=== PATIENT | male | born 1970 | race Caucasian/White ===

== ENCOUNTER 2020-04-21 17:25 | Emergency (ER) | payer OTHER ==
[~2020-04-21] VITALS: Ht 182.9 cm; Wt 99.8 kg
[~2020-04-21 17:25] MED LIST: ARNUITY ELLIP100 MCG IH; ASPIR 8181 MG ORAL; ATORVASTATIN CA80 MG ORAL; BACLOFEN10 MG ORAL; BRIMONIDINE 0.110 ML OP; CELEBREX100 MG ORAL; DEBROX15 M1 BOTH EARS; FERROUS SULFAT325 MG ORAL; FISH OIL 1,0001 EAC1 ORAL; FLAX SEED OIL1000 MG PO; FLONASE ALLERG9.9 ML NS; FLOVENT DISKUS50 MCG IH; FLOVENT2 PUFF1 INH; FUROSEMIDE40 MG ORAL; GARLIC1000 MG PO; HYDROXYZINE PA100 MG ORAL; KEPPRA500 M4 ORAL; MECLAZINE; METHOCARBAMOL500 MG ORAL; MIDODRINE; NEO-POLYCIN HC3.5 GM OP; NITROGLYCERIN2.5 MG PO; NORCO 5-325 TA1 EACH ORAL; PREDNISOLO15 MG/5 M1 ORAL; PRILOSEC OTC20 MG ORAL; RANEXA500 MG ORAL; SYNJARDY 5-5001 EACH PO; VENTOLIN HFA18 GM INH; [UNRECOGNIZED DRUG - OTHER]; [UNRECOGNIZED DRUG - OTHER]; [UNRECOGNIZED DRUG - OTHER]; [UNRECOGNIZED DRUG - OTHER]; trazadone; tricor
[2020-04-21 18:00] VITALS: BP 154/108
--- NOTE | 2020-04-21 18:00 | NUR ---
ED Nurse Note: Patient from home and walked in due to CP that radiates to his left arm and left leg x 2 days. ASA 362mg and 2 sprays of NTG given by EMS. Patient noted to be SOB at rest. Sats 97-100% in room air. Patient is AAO x4, follows commands with mild labored breathing.
--- NOTE | 2020-04-21 18:19 | NUR ---
ED Nurse Note: Collected blood specimen then sent.
--- NOTE | 2020-04-21 18:20 | NUR ---
ED Nurse Note: electrical tech/project manager at the bed side for CXR.
[2020-04-21] MEDS: Nitroglycerin Subl 0.4mg tab SL ONE ×2 (18:25→18:31)
[2020-04-21] MEDS ORDERED: Morphine Sulfate 4mg/ml Inj (IV USE ONLY) IVP ONE ×2 (18:30→20:00)
--- NOTE | 2020-04-21 18:33 | NUR ---
ED Nurse Note: Patient states that he took 3 doses of NTG at home and Dr Wallace was notified. NTG bottle seal was already torn off by Primary RN and wasting witnessed by Bill LONGO.
[2020-04-21 18:37] LABS: BASOPHILS % (AUTO) 1.1 % (0.0-2.0); EOSINOPHILS % (AUTO) 1.1 % (0.0-3.0); HEMATOCRIT 49.7 % (42.0-52.0); HEMOGLOBIN 16.7 G/DL (14.2-18.0); LYMPHOCYTES % (AUTO) 29.4 % (20.0-45.0); MEAN CORPUSCULAR VOLUME 89 FL (80-99); MONOCYTES % (AUTO) 8.1 % (1.0-10.0); NEUTROPHILS % (AUTO) 60.2 % (45.0-75.0); PLATELET COUNT 335 K/UL (150-450); RED BLOOD COUNT 5.58 M/UL (4.70-6.10); RED CELL DISTRIBUTION WIDTH 15.3 % (11.6-14.8); WHITE BLOOD COUNT 11.6 K/UL (4.8-10.8)
[2020-04-21 18:42] LABS: CALCIUM 9.2 MG/DL (8.5-10.1); CREATININE 1.6 MG/DL (0.55-1.30); POTASSIUM 4.2 MMOL/L (3.5-5.1)
--- NOTE | 2020-04-21 18:42 | Diagnostic Imaging Report ---
Indication: Chest pain Technique: One view of the chest Comparison: none Findings: The left hemidiaphragm is somewhat obscured, infiltrate, atelectasis, or pleural fluid at the left lung base possible. The lungs and right pleural space are otherwise clear. There is overlying cardiac loop monitor. The heart size is upper limits normal. Impression: Obscured left hemidiaphragm, could indicate atelectasis, pleural fluid, and/or consolidation at the left lung base No acute process otherwise
[2020-04-21 18:47] LABS: ALBUMIN 3.8 G/DL (3.4-5.0); ALBUMIN/GLOBULIN RATIO 0.8 (1.0-2.7); BILIRUBIN,TOTAL 0.4 MG/DL (0.2-1.0)
[2020-04-21] MEDS ORDERED: Omnipaque 350 100ml vial INJ PRN ×2 (19:15→21:00)
--- NOTE | 2020-04-21 19:35 | Diagnostic Imaging Report ---
EXAM: CT Head Without Intravenous Contrast CLINICAL HISTORY: SYNCOPE TECHNIQUE: Axial computed tomography images of the head/brain without intravenous contrast. CTDI is 53.4 mGy and DLP is 1045.5 mGy-cm. One or more of the following dose reduction techniques were used: automated exposure control, adjustment of the mA and/or kV according to patient size, use of iterative reconstruction technique. COMPARISON: No previous studies FINDINGS: Brain: No abnormal extra-axial collection. No hemorrhage. Ventricles: There is prominence of the ventricular system, cortical sulci, basilar cisterns, compatible with age related changes. Bones/joints: Unremarkable. No acute fracture. Soft tissues: Unremarkable. Sinuses: Visualized sinuses are unremarkable. Mastoid air cells: Mastoid air cells are well pneumatized. Other findings: Postsurgical changes. Axial and coronal images were provided. IMPRESSION: 1. Age-related changes. 2. No acute intracranial pathology is detected. 3. If there is concern for etiology such as early acute lacunar infarcts, magnetic resonance imaging of the brain with diffusion-weighted sequences should be performed.
--- NOTE | 2020-04-21 19:45 | Diagnostic Imaging Report ---
EXAM: CT Chest Without Intravenous Contrast CLINICAL HISTORY: Chest pain. TECHNIQUE: Axial computed tomography images of the chest without intravenous contrast. CTDI is 12.4 mGy and DLP is 460.1 mGy-cm. One or more of the following dose reduction techniques were used: automated exposure control, adjustment of the mA and/or kV according to patient size, use of iterative reconstruction technique. COMPARISON: Plain film evaluation of the chest performed earlier today. FINDINGS: Lungs: Evaluation of the right pulmonary parenchyma reveals scarring and subsegmental atelectasis posteriorly. Similar findings left lung. Airways patent. Pleural space: Unremarkable. No pneumothorax. No significant effusion. Heart: Unremarkable. No cardiomegaly. No significant pericardial effusion. Mediastinum: Minimally patulous air-filled distal esophagus. Thyroid: Thyroid gland is unremarkable. Bones/joints: Moderate degenerative disc disease of the thoracic spine. Sternum is unremarkable. No acute fracture. No dislocation. Soft tissues: Unremarkable. Vasculature: Minimal atherosclerotic disease of the thoracic aorta. No thoracic aortic aneurysm. Lymph nodes: Unremarkable. No enlarged lymph nodes. Other findings: Minimal ASCVD. IMPRESSION: No significant pulmonary parenchymal abnormalities.
[2020-04-21 19:53] VITALS: BP 148/90
--- NOTE | 2020-04-21 20:15 | NUR ---
[facility] will come to take patient @[id number] trip ticket #[phone]
--- NOTE | 2020-04-21 20:43 | Emergency Room Report ---
History of Present Illness General Chief Complaint: Chest Pain Source: EMS Present Illness HPI 50-year-old male presents for chest pain. Brought in by EMS from home. Midsternal, sharp, 8 out of 10, nonradiating. Started yesterday. Given aspirin and nitro by EMS with no improvement. Denies fevers or chills. Denies cough. No other aggravating relieving factors. Denies any other associated symptoms Allergies: Coded Allergies: AMOXICILLIN (Unverified Allergy, Unknown, 04/21/20) PENICILLINS (Verified Allergy, Unknown, 04/16/18) COVID-19 Screening Contact w/high risk pt: No Experienced COVID-19 symptoms?: No COVID-19 Testing performed DYEING MACHINE BACK TENDER: No Patient History Past Medical History: HTN, MT, asthma, GERD, CVA/TIA Social History: Denies: smoking, alcohol use, drug use Immunizations: UTD Reviewed Nursing Documentation: PMH: Agreed; PSxH: Agreed Nursing Documentation-PMH Past Medical History: No History, Except For Hx Cardiac Problems: Yes - MT Hx Hypertension: Yes Hx Asthma: Yes Hx Diabetes: Yes Hx Gastrointestinal Problems: Yes - gastritis, ulcer, Dyslipidemia, p ancreatitis, enlarged liver Hx Neurological Problems: Yes - migraine, glaucoma, caderacts, byfrontal cereb ral atrophy, cervical spondyl Hx Cerebrovascular Accident: Yes - 3 months ago. L sided weakness Hx Seizures: Yes Review of Systems All Other Systems: negative except mentioned in HPI Physical Exam Vital Signs Date Time Temp Pulse Resp B/P (MAP) Pulse Ox O2 Delivery O2 Flow Rate FiO2 04/21/20 17:19 98.2 130 18 122/98 (106) 96 Room Air Sp02 EP Interpretation: reviewed, normal General Appearance: no apparent distress, alert, GCS 15, non-toxic Head: normocephalic, atraumatic Eyes: bilateral eye normal inspection, bilateral eye PERRL ENT: hearing grossly normal, normal pharynx, no angioedema, normal voice Neck: full range of motion, supple/symm/no masses Respiratory: chest non-tender, lungs clear, normal breath sounds, speaking full sentences Cardiovascular #1: regular rate, rhythm, no edema Cardiovascular #2: 2+ carotid (R), 2+ carotid (L), 2+ radial (R), 2+ radial (L), 2+ dorsalis pedis (R), 2+ dorsalis pedis (L) Gastrointestinal: normal bowel sounds, non tender, soft, non-distended, no guarding, no rebound Rectal: deferred Genitourinary: normal inspection, no CVA tenderness Musculoskeletal: back normal, normal range of motion, gait/station normal, non- tender Neurologic: alert, motor strength/tone normal, oriented x3, sensory intact, responsive, speech normal Psychiatric: judgement/insight normal, memory normal, mood/affect normal, no suicidal/homicidal ideation Reflexes: 3+ bicep (R), 3+ bicep (L), 3+ tricep (R), 3+ tricep (L), 3+ knee (R), 3+ knee (L) Lymphatic: no adenopathy Medical Decision Making Diagnostic Impression: Primary Impression: Chest pain Qualified Codes: R07.9 - Chest pain, unspecified Additional Impression: Renal insufficiency ER Course Hospital Course 50 yo Male presents with chest pain. Differential diagnoses include: arrythmia, dehydration, intracranial bleed, sei zure Clinical course Patient placed on stretcher. on cardiac exercise specialist. After initial history and physical I ordered labs, EKG, chest Xray, morphine labs reviewed- no leukocytosis, Hb/Hct stable, mild renal insufficiency noted, troponins negative Chest x-ray- no acute process EKG -sinus tachycardia no acute ischemic changes interpreted by me Patient later stated that he passed out a few days ago and hit his head. CT head negative. CT chest negative discussed findings with patient. 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 Transportation arranged to take patient home. I. I feel this is a highly complex case requiring extensive working including EKG/Rhythm strip, Xray/CT/US, Blood/urine lab work, repeat exams while in ED, and administration of strong opiates/narcotics for pain control, admission to hospital or close patient follow up. Diagnosis - chest pain, renal insufficiency Stable and discharged to home. Followup with PMD. Return to ED if symptoms recur or worsen Laboratory Tests Test 04/21/20 18:15 White Blood Count 11.6 K/UL (4.8-10.8) H Red Blood Count 5.58 M/UL (4.70-6.10) Hemoglobin 16.7 G/DL (14.2-18.0) Hematocrit 49.7 % (42.0-52.0) Mean Corpuscular Volume 89 FL (80-99) Mean Corpuscular Hemoglobin 30.0 PG (27.0-31.0) Mean Corpuscular Hemoglobin Concent 33.6 G/DL (32.0-36.0) Red Cell Distribution Width 15.3 % (11.6-14.8) H Platelet Count 335 K/UL (150-450) Mean Platelet Volume 7.7 FL (6.5-10.1) Neutrophils (%) (Auto) 60.2 % (45.0-75.0) Lymphocytes (%) (Auto) 29.4 % (20.0-45.0) Monocytes (%) (Auto) 8.1 % (1.0-10.0) Eosinophils (%) (Auto) 1.1 % (0.0-3.0) Basophils (%) (Auto) 1.1 % (0.0-2.0) Sodium Level 133 MMOL/L (136-145) L Potassium Level 4.2 MMOL/L (3.5-5.1) Chloride Level 95 MMOL/L (98-107) L Carbon Dioxide Level 22 MMOL/L (21-32) Anion Gap 16 mmol/L (5-15) H Blood Urea Nitrogen 23 mg/dL (7-18) H Creatinine 1.6 MG/DL (0.55-1.30) H Estimat Glomerular Filtration Rate 45.6 mL/min (>60) Glucose Level 448 MG/DL (74-106) H Calcium Level 9.2 MG/DL (8.5-10.1) Total Bilirubin 0.4 MG/DL (0.2-1.0) Aspartate Amino Transf (AST/SGOT) 9 U/L (15-37) L Alanine Aminotransferase (ALT/SGPT) 44 U/L (12-78) Alkaline Phosphatase 83 U/L (46-116) Troponin I 0.000 ng/mL (0.000-0.056) Total Protein 8.4 G/DL (6.4-8.2) H Albumin 3.8 G/DL (3.4-5.0) Globulin 4.6 g/dL Albumin/Globulin Ratio 0.8 (1.0-2.7) L EKG Diagnostic Results Troponin ordered: Yes Rate: tachycardiac Rhythm: NSR ST Segments: no acute changes ASA given to the pt in ED: No Rhythm Strip Diag. Results EP Interpretation: yes Rhythm: NSR, no PVC's, no ectopy Chest X-Ray Diagnostic Results Chest X-Ray Diagnostic Results : Chest X-Ray Ordered: Yes # of Views/Limited/Complete: 1 View Indication: Chest Pain EP Interpretation: Yes Interpretation: no consolidation, no effusion, no pneumothorax, no acute cardiopulmonary disease Impression: No acute disease Electronically Signed by: Electronically signed by Gurpreet Wallace MD CT/MRI/US Diagnostic Results CT/MRI/US Diagnostic Results #1: Imaging Test Ordered: CT Head Impression Procedure: CT Head no Contrast EXAM: CT Head Without Intravenous Contrast CLINICAL HISTORY: SYNCOPE TECHNIQUE: Axial computed tomography images of the head/brain without intravenous contrast. CTDI is 53.4 mGy and DLP is 1045.5 mGy-cm. One or more of the following dose reduction techniques were used: automated exposure control, adjustment of the mA and/or kV according to patient size, use of iterative reconstruction technique. COMPARISON: No previous studies FINDINGS: Brain: No abnormal extra-axial collection. No hemorrhage. Ventricles: There is prominence of the ventricular system, cortical sulci, basilar cisterns, compatible with age related changes. Bones/joints: Unremarkable. No acute fracture. Soft tissues: Unremarkable. Sinuses: Visualized sinuses are unremarkable. Mastoid air cells: Mastoid air cells are well pneumatized. Other findings: Postsurgical changes. Axial and coronal images were provided. IMPRESSION: 1. Age-related changes. 2. No acute intracranial pathology is detected. 3. If there is concern for etiology such as early acute lacunar infarcts, magnetic resonance imaging of the brain with diffusion-weighted sequences should be performed. CT/MRI/US Diagnostic Results #2: Imaging Test Ordered: CT Chest Impression Procedure: CT Chest no Contrast EXAM: CT Chest Without Intravenous Contrast CLINICAL HISTORY: Chest pain. TECHNIQUE: Axial computed tomography images of the chest without intravenous contrast. CTDI is 12.4 mGy and DLP is 460.1 mGy-cm. One or more of the following dose reduction techniques were used: automated exposure control, adjustment of the mA and/or kV according to patient size, use of iterative reconstruction technique. COMPARISON: Plain film evaluation of the chest performed earlier today. FINDINGS: Lungs: Evaluation of the right pulmonary parenchyma reveals scarring and subsegmental atelectasis posteriorly. Similar findings left lung. Airways patent. Pleural space: Unremarkable. No pneumothorax. No significant effusion. Heart: Unremarkable. No cardiomegaly. No significant pericardial effusion. Mediastinum: Minimally patulous air-filled distal esophagus. Thyroid: Thyroid gland is unremarkable. Bones/joints: Moderate degenerative disc disease of the thoracic spine. Sternum is unremarkable. No acute fracture. No dislocation. Soft tissues: Unremarkable. Vasculature: Minimal atherosclerotic disease of the thoracic aorta. No thoracic aortic aneurysm. Lymph nodes: Unremarkable. No enlarged lymph nodes. Other findings: Minimal ASCVD. IMPRESSION: No significant pulmonary parenchymal abnormalities. Last Vital Signs Date Time Temp Pulse Resp B/P (MAP) Pulse Ox O2 Delivery O2 Flow Rate FiO2 04/21/20 19:53 98.3 110 18 148/90 99 Room Air Status: improved Disposition: HOME, SELF-CARE Condition: Stable Referrals: [facility],REFERRING (PCP) Patient Instructions: Nonspecific Chest Pain Gurpreet Wallace MD Apr 21, 2020 20:43
--- NOTE | 2020-04-21 21:15 | NUR ---
ED Nurse Note: Previous IV line was discharged. New IV line established on R upper arm at this time for CTA.
--- NOTE | 2020-04-21 21:23 | NUR ---
HAND-OFF: Report given to Belen LONGO.
--- NOTE | 2020-04-21 21:24 | NUR ---
ED Nurse Note: Report received from DONTA Puente.
--- NOTE | 2020-04-21 21:26 | NUR ---
ED Nurse Note: Patient taken to CT at this time.
--- NOTE | 2020-04-21 21:56 | NUR ---
ED Nurse Note: Patient returned from CT.
--- NOTE | 2020-04-21 22:09 | Diagnostic Imaging Report ---
EXAM: CT Angiography Chest With Intravenous Contrast CLINICAL HISTORY: CP TECHNIQUE: Axial computed tomographic angiography images of the chest with intravenous contrast. CTDI is 32.60 mGy and DLP is 396.20 mGy-cm. One or more of the following dose reduction techniques were used: automated exposure control, adjustment of the mA and/or kV according to patient size, use of iterative reconstruction technique. MIP reconstructed images were created and reviewed. COMPARISON: CT chest without contrast 04/21/2020 1934 hrs. FINDINGS: Pulmonary arteries: Unremarkable. No pulmonary embolism. Aorta: The left vertebral artery arises from the aortic arch. No thoracic aortic aneurysm. Lungs: Unremarkable. No mass. No consolidation. Pleural space: Unremarkable. No significant effusion. No pneumothorax. Heart: Unremarkable. No cardiomegaly. No significant pericardial effusion. No evidence of RV dysfunction. Bones/joints: No acute fracture. No dislocation. Soft tissues: Unremarkable. Lymph nodes: Unremarkable. No enlarged lymph nodes. IMPRESSION: No acute findings in the visualized arteries of the chest.
[2020-04-21 22:20] VITALS: BP 130/82
--- NOTE | 2020-04-21 22:20 | NUR ---
ER DISCHARGE NOTE: Patient is cleared to be discharged per ERMD, pt is aox4, on room air, with stable vital signs. pt was given dc instructions, pt was able to verbalize understanding, pt id band and iv site removed without complications. patient transported home via transport company. he took all belongings with him.
== END 2020-04-21 22:20 | disposition home or self-care (01) ==
LOC: EDBD 17:25 → EMR 18:00
DX: R07.89 Other chest pain (principal); N28.9 Disorder of kidney and ureter, unspecified; I10 Essential (primary) hypertension; E11.9 Type 2 diabetes mellitus without complications; E78.5 Hyperlipidemia, unspecified; I69.354 Hemiplegia and hemiparesis following cerebral infarction affecting left non-dominant side; I25.2 Old myocardial infarction; J45.909 Unspecified asthma, uncomplicated; R55 Syncope and collapse; Z88.0 Allergy status to penicillin
CPT/HCPCS: 36415; 70450; 71045; 71250; 71275; 80053; 84484; 85025; 93005; 96361; 96374; 96376; J2270; J7030; Q9967; Z7502; 99284